=== PATIENT | female | born 1955 | race Caucasian/White ===

== ENCOUNTER 2022-10-31 09:21 | Day surgery (SDC) | payer BC, SELFPAY ==
--- NOTE | 2022-10-30 08:47 | HO.ANESPROP2 ---
Documented by User: Lorie Tang NP 10/30/22 08:47 HPI - Anesthesia Eval Consult details Narrative: 67yo F for Colonoscopy FOR[facility], LAT[facility] Past Medical History Medical History (Updated 10/29/22 @ 13:26 by Lorie Tang NP) No pertinent past medical history Surgical History Surgical History (Updated 10/31/22 @ 09:55 by Armida De Leon RN) H/O section H/O colonoscopy (~2017) Social History Social History Patient Tobacco Use Status: Never used Tobacco Meds Allergies Allergy/AdvReac Type Severity Reaction Status Date / Time cyclobenzaprine Allergy Severe Hives Verified 10/31/22 09:58 [From Flexeril] Penicillins Allergy Severe Hives Verified 10/31/22 09:56 sulfamethoxazole Allergy Severe Hives Verified 10/31/22 09:56 [From Bactrim] trimethoprim [From Bactrim] Allergy Severe Hives Verified 10/31/22 09:56 Home Medications Medication Instructions Recorded Confirmed Last Taken Type No Known Home Meds 10/30/22 10/30/22 Unknown History Exam Exam Date and Time: October 30, 2022 0847 Assessment and Plan Assessment Anesthesia Assessment: Chart Reviewed Documented by User: Traci Finley MD 10/31/22 10:02 [facility] Past Medical History Medical History (Updated 10/29/22 @ 13:26 by Lorie Tang NP) No pertinent past medical history Surgical History Surgical History (Updated 10/31/22 @ 09:55 by Armida De Leon RN) H/O section H/O colonoscopy (~2017) History of Problems with Anesthesia: No Social History Social History Patient Tobacco Use Status: Never used Tobacco Meds Allergies Allergy/AdvReac Type Severity Reaction Status Date / Time cyclobenzaprine Allergy Severe Hives Verified 10/31/22 09:58 [From Flexeril] Penicillins Allergy Severe Hives Verified 10/31/22 09:56 sulfamethoxazole Allergy Severe Hives Verified 10/31/22 09:56 [From Bactrim] trimethoprim [From Bactrim] Allergy Severe Hives Verified 10/31/22 09:56 Home Medications Medication Instructions Recorded Confirmed Last Taken Type No Known Home Meds 10/30/22 10/30/22 Unknown History Exam Airway Mallampati Class: II Neck ROM: Full Loose/Missing/Broken Teeth: No Heart: RRR Lungs: CTA Assessment and Plan Assessment Anesthesia Assessment: Anesthesia Plan Discussed Final Anesthetic Review History of Problems with Anesthesia: No NPO: Yes ASA Class: I Final Preanesthetic Review: Meds/Allgs Chart Reviewed, Consent Obtained/Reviewed and Anes Risks/Benef Reviewed Patient Risk: Low Procedure Risk: Low Anesthetic Plan Anesthetic Plan: MAC: Disposition: Standard PACU
[2022-10-31 09:58] VITALS: BMI 21.0
[2022-10-31 10:06] VITALS: BP 136/75; PULSE 78; RESP 16; TEMP 36.8; O2SAT 95
--- NOTE | 2022-10-31 10:08 | MHC.SHP ---
Pre-Procedural Eval Section A Date of Service: 10/31/22 Section B Chief Complaint: screening, Personal history of colonic polyps Details of Present Illness: see H&P no changes Relevant Family History (Specify if Yes): No Relevant Social History: None Present Medications: None Medical History: No relevant PMH History of Previous Operations: No relevant previous surgery Allergies: Allergies Allergy/AdvReac Type Severity Reaction Status Date / Time cyclobenzaprine Allergy Severe Hives Verified 10/31/22 09:58 [From Flexeril] Penicillins Allergy Severe Hives Verified 10/31/22 09:56 sulfamethoxazole Allergy Severe Hives Verified 10/31/22 09:56 [From Bactrim] trimethoprim [From Bactrim] Allergy Severe Hives Verified 10/31/22 09:56 Review of Systems Sugical H&P ROS: Negative: Constitution, Cardiovascular, Respiratory, Neurological, Psychiatric, Hem-Onc, Allergic/Immunologic, Gastrointestinal, Genitourinary, Musculoskeletal, Integumentary, Endocrine and Eyes/Ears/Nose/Throat Exam Surgical H&P Exam: Normal: HEENT, Normal: Heart, Normal: Lungs, Normal: Extremities, Normal: Abdomen, Normal: Skin and Normal: Neurological Plan Diagnosis/Plan: Unchanged I have reviewed the history and physical and performed a pertinent physical examination on my patient. No changes have occurred unless specified. Time Spent With Patient Time: Total time managing care of this patient today ____ minutes.
[2022-10-31] MEDS: Lactated Ringers 1,000 ML 100 ML IVCONT (10:14)
[2022-10-31 11:00] VITALS: BP 81/45; PULSE 65; RESP 18; TEMP 36.6; O2SAT 97
--- NOTE | 2022-10-31 11:00 | P.BOP_ITS ---
Brief Operative Note Date of Service: 10/31/22 Pre-op diagnosis: screening Post-op diagnosis: same Procedure: colonoscopy Surgeon: Otto Turner Anesthesia: MAC Was an Dehydrator Operator used for this Procedure?: No Estimated blood loss (mL): 2 Pathology: other Condition: stable Disposition: PACU
[2022-10-31 11:15] VITALS: BP 104/49; PULSE 72; RESP 18; O2SAT 100
[2022-10-31 11:30] VITALS: BP 105/65; PULSE 96; RESP 18; TEMP 36.3; O2SAT 100
--- NOTE | 2022-10-31 13:00 | OP_ITS ---
DATE OF SERVICE: 10/31/2022 SURGEON: Otto Turner MD INDICATIONS: Colon cancer screening, prior history of adenomatous colon polyps. PREOPERATIVE DIAGNOSIS: POSTOPERATIVE DIAGNOSIS: PROCEDURE PERFORMED: Colonoscopy to the terminal ileum with biopsy. ESTIMATED BLOOD LOSS: COMPLICATIONS: ANESTHESIA: Monitored anesthesia care. ASSISTANTS: SPECIMENS: DESCRIPTION OF PROCEDURE: A history and physical was performed. The risks and benefits of the procedure explained to the patient. Informed consent was obtained. The patient was placed in the left lateral decubitus position. A digital rectal exam was performed and was found to be normal. The Olympus pediatric video colonoscope was introduced into the rectum and advanced to the cecum without difficulty. The cecum was identified by transillumination, palpation, and identification of the ileocecal valve. Examination was performed. The scope was removed. She tolerated the procedure well and was returned to the recovery area in stable condition. FINDINGS: The terminal ileum was examined and appeared normal. The visualized colonic mucosa was normal. Quality of the prep was good. There were 3 polyps identified, all measured less than 5 mm. Two were located at 15 cm, and one was located at 20 cm. The polyps were removed with a biopsy forceps. There was very minimal diverticulosis involving the sigmoid. Retroflexed examination was normal. IMPRESSION: Colon polyps. RECOMMENDATIONS: Follow up the biopsy results. MD WM Gutierrez/ABBEY / [id number] MTDD
== END 2022-10-31 11:46 | disposition home or self-care (01) ==
PROVIDERS: PCP Internal Medicine Geriatric Medicine; Visit Provider Internal Medicine Gastroenterology
PROC: 0DJD8ZZ Inspection of Lower Intestinal Tract, Via Natural or Artificial Opening Endoscopic (ICD-10-PCS; CPT 45378; principal; 2022-10-31 10:40)
DX: Z86.010 Personal history of colon polyps (principal); K63.5 Polyp of colon; K57.30 Diverticulosis of large intestine without perforation or abscess without bleeding; K58.0 Irritable bowel syndrome with diarrhea; Z12.11 Encounter for screening for malignant neoplasm of colon; Z88.0 Allergy status to penicillin; Z88.8 Allergy status to other drugs, medicaments and biological substances
CPT/HCPCS: 45380; 88305